=== PATIENT | male | born 1945 | race Caucasian/White ===

== ENCOUNTER 2016-05-25 21:02 | Emergency (ER) | payer OTHER, MEDICARE ==
--- NOTE | 2016-05-25 21:06 | PDOC ---
History of Present Illness - History of Present Illness Initial Comments: 05/25/16 21:56 The patient is a 70 year old male with a PMHx of esophageal cancer, HIV, diabetes who presents to the ED with generalized fatigue for 2 days and fever ( Tmax 102) today. He reports associated cough. He reports he recently completed another round of chemotherapy a week and a half ago. [facility] [place] be doing additional tests next week. He denes any sick contacts or recent travel. He denies chest pain, SOB.He denies abdominal pain, nausea, vomiting, diarrhea. PAST MEDICAL HISTORY: esophageal cancer, HIV, diabetes PAST SURGICAL HISTORY: no significant history FAMILY HISTORY: no pertinent history SOCIAL HISTORY: Pt lives with family and is employed. MEDICATIONS: reviewed ALLERGIES: As per nursing notes Review of Systems: General: (+) fever, weakness. No chills, no weight loss HEENT: No change in vision. No sore throat,. No ear pain CardioVascular: No chest pain or shortness of breath Respiratory: (+) cough, No wheezing. Gastrointestinal: no nausea, vomiting, diarrhea or constipation, No rectal bleeding Genitourinary: No dysuria, hematuria, or frequency Musculoskeletal: No joint or muscle pain or swelling Neurologic: No headache, vertigo, dizziness or loss of consciousness Psychiatric: No depression Skin: No rashes or easy bruising Endocrine: No increased thirst or abnormal weight change Allergic: No skin or latex allergy All other systems reviewed and normal Physical Exam: General:Ill-appearing, no acute distress HEENT: Throat: Normal, tonsils normal, no erythema or exudate. Dry mucous membranes. Neck: Supple, no meningeal signs, no lymphadenopathy Eyes: Pupils equal reactive and round, extraocular motion intact Chest: Nontender to palpation. Palpable port in the right upper chest with no erythema Cardiac: S1-S2 normal, regular rate and rhythm, no murmurs rubs or gallops Respiratory: Lungs clear to auscultation bilateral Abdomen: G-tube with no erythema or warmth. Soft, nondistended, normal bowel sounds, nontender to palpation diffusely Extremities: Warm, dry, no cyanosis, clubbing, or edema Skin: No rashes Neuro: Alert and oriented x3, nonfocal exam, grossly intact, normal gait Psych: Normal mood and affect <Alma Peacock - Last Filed: 05/25/16 21:56> - General History Source: Patient Exam Limitations: No Limitations - History of Present Illness Initial Comments: 05/25/16 23:15 A portion of this note was documented by scribe services under my direction. I have reviewed the details of the note, within reason, and agree with the documentation. The case summary and management plan written by me. Chest x-ray no acute pathology EKG normal sinus rhythm at a rate of 87, no acute ST-T wave changes normal EKG Assessment and plan: This is a 70-year-old male who comes in complaining of fever. Patient is on chemotherapy for esophageal cancer. Patient had a workup done and labs revealed a normal white count with no left shift, chemistry was unremarkable with the exception of a slightly decreased sodium of 127. Patient was given a liter and a half of fluids There was no focus for his fever identified. Patient was given acetaminophen IV for the fever with a repeat temperature of 99.0 orally. I called patient's oncologist done at [facility] and got the covering doctor a Dr. rey who recommends that we do not give patient any antibiotics at this time as we do not know what the source of his fever is and the that he can follow-up with his oncologist in the morning. <Sherin De Leon I - Last Filed: 05/25/16 23:18> - General Chief Complaint: Respiratory Stated Complaint: FEVER Time Seen by Provider: 05/25/16 21:06 Past History <Alma Peacock - Last Filed: 05/25/16 21:56> <Sherin De Leon I - Last Filed: 05/25/16 23:18> - Past Medical History Allergies/Adverse Reactions: Allergies Allergy/AdvReac Type Severity Reaction Status Date / Time No Known Allergies Allergy Unverified 05/25/16 21:09 Home Medications: Ambulatory Orders Abacavir Sulfate [Abacavir] 300 mg PO BID 05/25/16 Amlodipine Besylate 10 mg PO DAILY 05/25/16 Atorvastatin Ca [Lipitor] 80 mg PO HS 05/25/16 Bupropion HCl [Bupropion Xl] 300 mg PO DAILY 05/25/16 Clopidogrel Bisulfate [Plavix -] 75 mg PO DAILY 05/25/16 Efavirenz [Sustiva] 600 mg PO DAILY 05/25/16 Famciclovir 250 mg PO BID 05/25/16 Lisinopril 10 mg PO DAILY 05/25/16 Multivit-Minerals/Ferrous Fum [Multivitamin Liquid] 9 mg PO DAILY 05/25/16 [place]-3/Dha/Epa/Fish Oil [Fish Oil Conc 1,000 mg Softgel] 1,000 mg PO BID Omeprazole 20 mg PO BID 05/25/16 Pantoprazole Suspension [Protonix Packets For Oral Suspension -] 40 mg PO DAILY 05/25/16 Tenofovir Disoproxil Fumarate [Viread] 300 mg PO DAILY 05/25/16 *Physical Exam - Vital Signs Last Vital Signs Temp Pulse Resp BP Pulse Ox 100.6 F H 98 H 16 132/72 97 05/25/16 21:09 05/25/16 21:09 05/25/16 21:09 05/25/16 21:09 05/25/16 21:09 <Alma Peacock - Last Filed: 05/25/16 21:56> ED Treatment Course - LABORATORY CBC & Chemistry Diagram: 05/25/16 21:39 05/25/16 21:39 - ADDITIONAL ORDERS Additional order review: 05/25/16 21:39 RBC 3.36 L MCV 93.6 MCHC 34.6 RDW 16.3 H MPV 6.6 L Neutrophils % 41.2 L Lymphocytes % 43.5 H Monocytes % 12.2 H Eosinophils % 2.5 Basophils % 0.6 <Alma Peacock - Last Filed: 05/25/16 21:56> - LABORATORY CBC & Chemistry Diagram: 05/25/16 21:39 05/25/16 21:39 <Sherin De Leon I - Last Filed: 05/25/16 23:18> *DC/Admit/Observation/Transfer - Attestations Scribe Attestion: 05/25/16 21:56 Documentation prepared by Alma Peacock, acting as medical unit secretary for Sherin De Leon MD. <Alma Peacock - Last Filed: 05/25/16 21:56> - Discharge Dispostion Admit: No <Sherin De Leon I - Last Filed: 05/25/16 23:18> Diagnosis at time of Disposition: Fever of unknown origin - Discharge Dispostion Disposition: HOME Condition at time of disposition: Stable - Referrals Referrals: STAFF,NOT ON [Primary Care Provider] - - Patient Instructions Additional Instructions: You can alternate acetaminophen with ibuprofen every 3 hours as needed for fevers. Call your oncologist in the morning Return to the emergency department immediately with ANY new, persistent or worsening symptoms. Continue any medications as previously prescribed by your physician. You should follow up with your primary doctor as soon as possible regarding today's emergency department visit. . Please make sure your doctor reviews the results of your emergency evaluation. Thank you for coming to the Emergency Department today for your care. It was a pleasure to see you today. Please note that your evaluation is INCOMPLETE until you follow-up with your doctor.
[2016-05-25 21:30] VITALS: BP 132/72; PULSE 98; BMI 22.5
[2016-05-25 21:51] LABS: BASOPHIL 0.6 % (0-2.0); EOSINOPHIL 2.5 % (0-4.5); MCH 32.4 pg (25.7-33.7); MCHC 34.6 g/dl (32.0-35.9); MEAN CELL VOLUME 93.6 fl (80-96); MEAN PLT VOLUME 6.6 fl (7.5-11.1); NEUTROPHILS 41.2 % (42.8-82.8); PLATELET COUNT 169 K/MM3 (134-434); RDW 16.3 % (11.9-15.9); WHITE BLOOD COUNT 7.6 K/mm3 (4.0-10.8)
[2016-05-25] MEDS ORDERED: ACETAMINOPHEN 1000 MG/100 ML VIAL (NON FORMULARY) IVPB ONE (21:59)
[2016-05-25 22:02] LABS: CPK(DFH) 40 IU/L (38-174)
[2016-05-25 22:03] LABS: ALBUMIN 3.2 g/dl (3.5-5.0); ALK PHOS 118 U/L (32-92); ANION GAP 8 (8-16); BILIRUBIN,TOTAL 0.4 mg/dl (0.2-1.0); CALCIUM 8.8 mg/dl (8.4-10.2); CO2 23 mmol/L (22-28); CREATININE 0.7 mg/dl (0.6-1.3); GLUCOSE,RANDOM 169 mg/dl (74-106); SGOT/AST 25 U/L (10-42); SGPT/ALT 20 U/L (10-40); TOT PROT 6.6 g/dl (6.4-8.3)
[2016-05-25] MEDS ORDERED: ACETAMINOPHEN INJECTION 100 ML IVPB ONE (22:04)
[2016-05-25 22:14] LABS: TROPONIN I (DFP) < 0.03 ng/ml (0.03-0.50)
[2016-05-25] MEDS ORDERED: SODIUM CHLORIDE 1,000 ML IV ONE (22:15)
[2016-05-25 23:18] VITALS: TEMP 99
[2016-05-25 23:22] LABS: URINE APPEARANCE Clear; URINE BILIRUBIN Negative (NEGATIVE); URINE BLOOD Negative (NEGATIVE); URINE GLUCOSE (UA) Negative (NEGATIVE); URINE KETONE Negative (NEGATIVE); URINE LEUK ESTERASE Negative (NEGATIVE); URINE NITRITE Negative (NEGATIVE); URINE PROTEIN Trace (NEGATIVE); URINE UROBILINOGEN 0.2 E.U/dl (0.2-1.0)
[2016-05-25 23:23] LABS: URINE COLOR YELLOW
--- NOTE | 2016-05-26 18:48 | EKG ---
Test Reason : Blood Pressure : / mmHG Vent. Rate : 087 BPM Atrial Rate : 087 BPM P-R Int : 158 ms QRS Dur : 078 ms QT Int : 374 ms P-R-T Axes : 054 030 045 degrees QTc Int : 450 ms NORMAL SINUS RHYTHM NO PREVIOUS ECGS AVAILABLE Confirmed by MD STUART, COREY ([id number]) on 05/26/2016 6:48:00 PM Referred By: CARTER Confirmed By:COREY DAVIDSON MD
== END 2016-05-26 00:02 | disposition home or self-care (01) ==
LOC: FER 21:02
PROC: 3E0237Z Introduction of Electrolytic and Water Balance Substance into Muscle, Percutaneous Approach (ICD-10-PCS; principal; 2016-05-25)
PROC: 3E033NZ Introduction of Analgesics, Hypnotics, Sedatives into Peripheral Vein, Percutaneous Approach (ICD-10-PCS; 2016-05-25)
DX: R50.9 Fever, unspecified (principal); Z92.21 Personal history of antineoplastic chemotherapy; Z85.01 Personal history of malignant neoplasm of esophagus; E11.9 Type 2 diabetes mellitus without complications; Z21 Asymptomatic human immunodeficiency virus [HIV] infection status
CPT/HCPCS: 36415; 71010-TC; 80053; 81003; 82550; 83605; 84484; 85025; 87040; 87086; 87804; 93005; 99283-25

== ENCOUNTER 2016-06-03 21:19 | Emergency (ER) | payer OTHER, MEDICARE ==
--- NOTE | 2016-06-03 21:29 | PDOC ---
History of Present Illness - History of Present Illness Initial Comments: 06/03/16 21:46 Patient is a 70 year old male, significant medical hx of HIV, DM and esophageal CA, recently seen on 05/25/16 for complaint of fever and cough, who is returning to the ED for return of symptoms. The patient was tested positive for influenza type A and B during his last visit. Today he is here because his cough returned two days ago, which is nonproductive, and fever returned today. The patient also endorses diarrhea this morning and increased fatigue. The patient notes that he received a PET scan yesterday. Denies chest pain, shortness of breath, vomiting, or abdominal pain. PAST MEDICAL HISTORY: HIV, DM, esophageal CA PAST SURGICAL HISTORY: no significant history FAMILY HISTORY: no pertinent history SOCIAL HISTORY: Pt lives with family and is employed. MEDICATIONS: reviewed ALLERGIES: As per nursing notes General: Fever and fatigue. No or chills, no weight loss HEENT: No change in vision. No sore throat,. No ear pain CardioVascular: No chest pain or shortness of breath Respiratory: Cough. No wheezing. Gastrointestinal: Diarrhea. no nausea, vomiting, or constipation, No rectal bleeding Genitourinary: No dysuria, hematuria, or frequency Musculoskeletal: No joint or muscle pain or swelling Neurologic: No headache, vertigo, dizziness or loss of consciousness Psychiatric: nor depression Skin: No rashes or easy bruising Endocrine: no increased thirst or abnormal weight change Allergic: no skin or latex allergy All other systems reviewed and normal General: Chronically ill appearing, no acute distress HEENT: Throat: Normal, tonsils normal, no erythema or exudate. Mucous membranes are dry. Neck: Supple, no meningeal signs, no lymphadenopathy Eyes: Pupils equal reactive and round, extraocular motion intact Chest: Palpable portacath right chest no tenderness or erythema. Cardiac: Tachycardia. S1-S2 normal, no murmurs rubs or gallops Respiratory: Decreased breath sounds bilateral with a few rhonchi left base. No crackles. Abdomen: G-Tube in good position. Soft, nondistended, normal bowel sounds, nontender to palpation diffusely Extremities: Warm, dry, no cyanosis, clubbing, or edema Skin: No rashes Neuro: Alert and oriented x3, nonfocal exam, grossly intact, normal gait Psych: Normal mood and affect <Gricel Bowman - Last Filed: 06/03/16 21:45> - General History Source: Patient Exam Limitations: No Limitations - History of Present Illness Initial Comments: 06/03/16 23:28 A portion of this note was documented by scribe services under my direction. I have reviewed the details of the note, within reason, and agree with the documentation. The case summary and management plan written by me. Chest x-ray no acute infiltrate EKG normal sinus rhythm at a rate of 95, no acute ST-T wave changes, normal intervals Assessment and plan: This is a 70-year-old male with history significant for HIV , diabetes and esophageal cancer who is on chemotherapy. As a patient approximately 2 weeks ago and did a workup for fever. Patient's workup at that time was positive for influenza. Patient has been doing well until today when he developed some diarrhea and fever again. In addition to then significant illnesses he does have a cough that is new 2 days. On exam patient did have a few rhonchi at the base however his chest x-ray does not show a definite infiltrate. Patient has a normal white count and there is no left shift. Patient has 50% neutrophils with a white count of 4.4 so absolute neutrophil count is adequate. Patient is hyponatremic his sodium is 125, his sodium last time he was here was 127. Sodium is essentially unchanged. He does have a mildly elevated glucose however he is also diabetic. His lactic acid was normal and his venous blood gas showed no acidosis. On arrival he was dehydrated with slight tachycardia and mild hypotension however after a liter and half of fluid his blood pressure is normal as well as his heart rate. His oxygen saturation is normal 'I called patient's oncologist and discussed his workup with the covering oncologist a doctor Garcia. Patient was given ceftriaxone and azithromycin as it appears his source may be an early respiratory infection. C. difficile was also a consideration however patient has not had any recent antibiotics, he has had no diarrhea here in the emergency room and was unable to give us a stool sample. I think his diarrhea most likely is secondary to by mouth contrast that he received for a CAT scan the day before. Patient has an appointment with his oncologist for Sunday which she will keep. Patient discharged home with his significant other who is responsible and will make sure he follows up. 06/03/16 23:34 <Sherin De Leon I - Last Filed: 06/03/16 23:35> - General Chief Complaint: Cold Symptoms Stated Complaint: FEVER Time Seen by Provider: 06/03/16 21:28 Past History <Gricel Bowman - Last Filed: 06/03/16 21:45> - Past Medical History Cancer: Yes (ESOPHAGEAL) Diabetes: Yes HTN: Yes Hypercholesterolemia: Yes HIV: Yes - Surgical History Abdominal Surgery: Yes (COLON RESECTION, PEG PLACEMENT) - Psycho/Social/Smoking Cessation Hx Anxiety: No Suicidal Ideation: No Smoking History: Former smoker Have you smoked in the past 12 months: No Number of Cigarettes Smoked Daily: 20 If you are a former smoker, when did you quit?: 1997 <Sherin De Leon I - Last Filed: 06/03/16 23:35> - Past Medical History Allergies/Adverse Reactions: Allergies Allergy/AdvReac Type Severity Reaction Status Date / Time No Known Allergies Allergy Unverified 05/25/16 21:09 Home Medications: Ambulatory Orders Abacavir Sulfate [Abacavir] 300 mg PO BID 05/25/16 Amlodipine Besylate 10 mg PO DAILY 05/25/16 Atorvastatin Ca [Lipitor] 80 mg PO HS 05/25/16 Bupropion HCl [Bupropion Xl] 300 mg PO DAILY 05/25/16 Clopidogrel Bisulfate [Plavix -] 75 mg PO DAILY 05/25/16 Efavirenz [Sustiva] 600 mg PO DAILY 05/25/16 Famciclovir 250 mg PO BID 05/25/16 Lisinopril 10 mg PO DAILY 05/25/16 Multivit-Minerals/Ferrous Fum [Multivitamin Liquid] 9 mg PO DAILY 05/25/16 [place]-3/Dha/Epa/Fish Oil [Fish Oil Conc 1,000 mg Softgel] 1,000 mg PO BID Omeprazole 20 mg PO BID 05/25/16 Pantoprazole Suspension [Protonix Packets For Oral Suspension -] 40 mg PO DAILY 05/25/16 Tenofovir Disoproxil Fumarate [Viread] 300 mg PO DAILY 05/25/16 Azithromycin 250 mg PO ONCE #4 tablet 06/03/16 *Physical Exam - Vital Signs Last Vital Signs Temp Pulse Resp BP Pulse Ox 100.2 F H 105 H 24 97/54 98 06/03/16 21:30 06/03/16 21:30 06/03/16 21:30 06/03/16 21:30 06/03/16 21:30 <Gricel Bowman - Last Filed: 06/03/16 21:45> ED Treatment Course - LABORATORY CBC & Chemistry Diagram: 06/03/16 21:58 06/03/16 21:58 <Sherin De Leon I - Last Filed: 06/03/16 23:35> *DC/Admit/Observation/Transfer - Attestations Scribe Attestion: 06/03/16 21:51 Documentation prepared by Gricel Bowman, acting as medical videographer for Sherin De Leon MD. <Gricel Bowman - Last Filed: 06/03/16 21:45> <Sherin De Leon I - Last Filed: 06/03/16 23:35> Diagnosis at time of Disposition: Chronic hyponatremia Fever Qualifiers: Fever type: unspecified Qualified Code(s): R50.9 - Fever, unspecified - Discharge Dispostion Disposition: HOME Condition at time of disposition: Stable - Prescriptions Prescriptions: Azithromycin 250 mg PO ONCE #4 tablet - Referrals Referrals: STAFF,NOT ON [Primary Care Provider] - - Patient Instructions Additional Instructions: Take azithromycin 1 tablet a day for the next 4 days. Make sure you keep your appointment with your oncologist on Sunday. Try to stay well-hydrated, Return to the emergency department immediately with ANY new, persistent or worsening symptoms. Continue any medications as previously prescribed by your physician. You should follow up with your primary doctor as soon as possible regarding today's emergency department visit. . Please make sure your doctor reviews the results of your emergency evaluation. Thank you for coming to the Emergency Department today for your care. It was a pleasure to see you today. Please note that your evaluation is INCOMPLETE until you follow-up with your doctor.
[2016-06-03] MEDS ORDERED: SODIUM CHLORIDE 0.9% 1000 ML INFUS.BAG IV STA (21:33)
[2016-06-03 21:36] VITALS: BMI 22.3
[2016-06-03 22:17] LABS: BASOPHIL 0.9 % (0-2.0); EOSINOPHIL 7.8 % (0-4.5); MCH 31.8 pg (25.7-33.7); MCHC 33.9 g/dl (32.0-35.9); MEAN CELL VOLUME 93.7 fl (80-96); MEAN PLT VOLUME 7.3 fl (7.5-11.1); NEUTROPHILS 50.2 % (42.8-82.8); PLATELET COUNT 157 K/MM3 (134-434); RDW 15.6 % (11.9-15.9); WHITE BLOOD COUNT 4.4 K/mm3 (4.0-10.8)
[2016-06-03 22:20] LABS: CPK(DFH) 40 IU/L (38-174); INR 1.26 (0.82-1.09)
[2016-06-03 22:21] LABS: ALBUMIN 2.8 g/dl (3.5-5.0); ALK PHOS 109 U/L (32-92); ANION GAP 7 (8-16); CALCIUM 8.2 mg/dl (8.4-10.2); CO2 21 mmol/L (22-28); COCKROFT - GAULT 74.08; CREATININE 0.9 mg/dl (0.6-1.3); GLUCOSE,RANDOM 235 mg/dl (74-106); SGOT/AST 26 U/L (10-42); SGPT/ALT 20 U/L (10-40); TOT PROT 6.6 g/dl (6.4-8.3)
[2016-06-03 22:28] LABS: ACTIVATED PTT 39.2 SECONDS (24.0-38.9)
[2016-06-03 22:30] LABS: BILIRUBIN,TOTAL 0.4 mg/dl (0.2-1.0)
[2016-06-03 22:36] LABS: TROPONIN I (DFP) < 0.03 ng/ml (0.03-0.50)
[2016-06-03 22:54] VITALS: TEMP 99
[2016-06-03 22:54] LABS: VENOUS BLOOD GAS HCO3 20.9 meq/L (19-25); VENOUS PH 7.46 (7.32-7.42)
[2016-06-03 23:00] LABS: PH,URINE 5.5 (4.5-8); URINE APPEARANCE Clear; URINE BILIRUBIN Negative (NEGATIVE); URINE BLOOD Negative (NEGATIVE); URINE GLUCOSE (UA) Negative (NEGATIVE); URINE KETONE Negative (NEGATIVE); URINE LEUK ESTERASE Negative (NEGATIVE); URINE NITRITE Negative (NEGATIVE); URINE PROTEIN Trace (NEGATIVE); URINE UROBILINOGEN 0.2 E.U/dl (0.2-1.0)
[2016-06-03 23:01] LABS: URINE COLOR YELLOW
[2016-06-03] MEDS ORDERED: CEFTRIAXONE 1 GM in DEXTROSE 5%-WATER - 50 ML IVPB ONE (23:22)
[2016-06-03] MEDS ORDERED: AZITHROMYCIN IVPB 500 MG in DEXTROSE 5%-WATER - 250 ML IVPB ONE (23:26)
[2016-06-03] MEDS ORDERED: AZITHROMYCIN 500 MG VIAL IVPB ONE (23:26)
[2016-06-03] MEDS ORDERED: cefTRIAXone SODIUM 1 GM VIAL ONE (23:26)
[2016-06-03 23:55] VITALS: BP 131/65; PULSE 98
--- NOTE | 2016-06-05 12:21 | EKG ---
Test Reason : Blood Pressure : / mmHG Vent. Rate : 095 BPM Atrial Rate : 095 BPM P-R Int : 146 ms QRS Dur : 078 ms QT Int : 376 ms P-R-T Axes : 046 021 043 degrees QTc Int : 472 ms NORMAL SINUS RHYTHM WHEN COMPARED WITH ECG OF 25-MAY-2016 22:00, NO SIGNIFICANT CHANGE WAS FOUND Confirmed by MEERA CARBAJAL MD ([id number] on 06/05/2016 12:20:52 PM Referred By: SAMI CORBIN Confirmed By:MEERA CARBAJAL MD
== END 2016-06-04 01:04 | disposition home or self-care (01) ==
LOC: FER 21:19
PROC: 3E03329 Introduction of Other Anti-infective into Peripheral Vein, Percutaneous Approach (ICD-10-PCS; principal; 2016-06-03)
PROC: 3E0337Z Introduction of Electrolytic and Water Balance Substance into Peripheral Vein, Percutaneous Approach (ICD-10-PCS; 2016-06-03)
DX: R50.9 Fever, unspecified (principal); C15.9 Malignant neoplasm of esophagus, unspecified; E87.1 Hypo-osmolality and hyponatremia; Z87.891 Personal history of nicotine dependence; E11.9 Type 2 diabetes mellitus without complications; E78.00 Pure hypercholesterolemia, unspecified; I10 Essential (primary) hypertension; Z21 Asymptomatic human immunodeficiency virus [HIV] infection status
CPT/HCPCS: 36415; 71010-TC; 80053; 81003; 82550; 82803; 83605; 84484; 85025; 85610; 85730; 87040; 87086; 87324; 87449; 93005; 96361; 96365; 96368; 99283-25

== ENCOUNTER 2016-06-04 19:39 | Emergency (ER) | payer OTHER, MEDICARE ==
--- NOTE | 2016-06-04 20:01 | PDOC ---
[id number] No Limitations - History of Present Illness Initial Comments: 06/04/16 20:05 Patient is a 70 year old male, significant medical hx of HIV, DM and esophageal CA, recently seen on 06/03/16 and 05/25/16 for complaint of fever and cough, who is returning to the ED for return of symptoms. The patient was tested positive for influenza type A and B during his first visit on 05/25/16. Today he is here because his fever and cough returned. He states that his temp was 102.2 degrees two hours prior to arrival. The patient also endorses diarrhea 2x, and increased fatigue. The patient notes that he received a PET scan two days ago. After temp was detected this afternoon, he called oncologist on-call at [facility], and was told to either come into [facility] or go to local ER to determine if he had to be admitted. If he had to be admitted he would have to go to [facility]. Denies chest pain, shortness of breath, vomiting, or abdominal pain. Did not take his dose of azithromycin today. 06/04/16 20:35 <Kerwin Roach - Last Filed: 06/04/16 20:35> <Nohemi Garcia - Last Filed: 06/07/16 02:56> - General Stated Complaint: FEVER Time Seen by Provider: 06/04/16 19:48 Past History <Kerwin Roach - Last Filed: 06/04/16 20:35> - Past Medical History Cancer: Yes (ESOPHAGEAL) Diabetes: Yes HTN: Yes Hypercholesterolemia: Yes HIV: Yes - Surgical History Abdominal Surgery: Yes (COLON RESECTION, PEG PLACEMENT) - Psycho/Social/Smoking Cessation Hx Anxiety: No Suicidal Ideation: No Smoking History: Never smoked Have you smoked in the past 12 months: No Number of Cigarettes Smoked Daily: 20 If you are a former smoker, when did you quit?: 1997 Information on smoking cessation initiated: No Hx Alcohol Use: No Drug/Substance Use Hx: No Substance Use Type: None <Nohemi Garcia - Last Filed: 06/07/16 02:56> - Past Medical History Allergies/Adverse Reactions: Allergies Allergy/AdvReac Type Severity Reaction Status Date / Time No Known Allergies Allergy Verified 06/04/16 19:42 Home Medications: Ambulatory Orders Abacavir Sulfate [Abacavir] 300 mg PO BID 05/25/16 Amlodipine Besylate 10 mg PO DAILY 05/25/16 Atorvastatin Ca [Lipitor] 80 mg PO HS 05/25/16 Bupropion HCl [Bupropion Xl] 300 mg PO DAILY 05/25/16 Clopidogrel Bisulfate [Plavix -] 75 mg PO DAILY 05/25/16 Efavirenz [Sustiva] 600 mg PO DAILY 05/25/16 Famciclovir 250 mg PO BID 05/25/16 Lisinopril 10 mg PO DAILY 05/25/16 Multivit-Minerals/Ferrous Fum [Multivitamin Liquid] 9 mg PO DAILY 05/25/16 [place]-3/Dha/Epa/Fish Oil [Fish Oil Conc 1,000 mg Softgel] 1,000 mg PO BID Omeprazole 20 mg PO BID 05/25/16 Pantoprazole Suspension [Protonix Packets For Oral Suspension -] 40 mg PO DAILY 05/25/16 Tenofovir Disoproxil Fumarate [Viread] 300 mg PO DAILY 05/25/16 Azithromycin 250 mg PO ONCE #4 tablet 06/03/16 Review of Systems - Review of Systems Able to Perform ROS?: Yes Comments:: 06/04/16 20:07 CONSTITUTIONAL: Present: generalized weakness. fever. Absent: chills, diaphoresis, malaise, loss of appetite HEENT: Absent: rhinorrhea, nasal congestion, throat pain, throat swelling, difficulty swallowing, mouth swelling, ear pain, eye pain, visual Changes CARDIOVASCULAR: Absent: chest pain, syncope, palpitations, irregular heart rate, lightheadedness , peripheral edema RESPIRATORY: Present: cough Absent: shortness of breath, dyspnea with exertion, orthopnea, wheezing, stridor , hemoptysis GASTROINTESTINAL: Present: diarrhea Absent: abdominal pain, abdominal distension, nausea, vomiting, constipation, melena, hematochezia GENITOURINARY: Absent: dysuria, frequency, urgency, hesitancy, hematuria, flank pain, genital pain MUSCULOSKELETAL: Absent: myalgia, arthralgia, joint swelling SKIN: Absent: rash, itching, pallor HEMATOLOGIC/IMMUNOLOGIC: Absent: easy bleeding, easy bruising, lymphadenopathy, frequent infections ENDOCRINE: Absent: unexplained weight gain, unexplained weight loss, heat intolerance, cold intolerance NEUROLOGIC: Absent: headache, focal weakness or paresthesias, dizziness, unsteady gait, seizure, mental status changes, bladder or bowel incontinence PSYCHIATRIC: Absent: anxiety, depression, suicidal or homicidal ideation, hallucinations. <Kerwin Roach - Last Filed: 06/04/16 20:35> *Physical Exam - Vital Signs Last Vital Signs Temp Pulse Resp BP Pulse Ox 100.8 F H 94 H 18 153/76 98 06/04/16 19:46 06/04/16 19:46 06/04/16 19:46 06/04/16 19:46 06/04/16 19:46 - Physical Exam Comments: 06/04/16 20:09 GENERAL: The patient is awake, alert, and fully oriented, in no acute distress. HEAD: Normal with no signs of trauma. EYES: Pupils equal, round and reactive to light, extraocular movements intact, sclera anicteric, conjunctiva clear with no pallor. ENT: Ears normal, nares patent, oropharynx clear without exudates. Dry mucous membranes. NECK: Normal range of motion, supple without lymphadenopathy, JVD, or masses. LUNGS: Breath sounds equal, clear to auscultation bilaterally. No wheeze/ crackles. HEART: Regular rate and rhythm, normal S1 and S2 without murmur or rub. ABDOMEN: Soft/nontender/nondistended. BS wnl. No guarding or rebound. No palpable masses. No hepatosplenomegaly. G tube in place on abdomen with non infected site. EXTREMITIES: Normal range of motion, no edema. No clubbing or cyanosis. No cords , erythema, or tenderness. NEUROLOGICAL: Cranial nerves II through XII grossly intact. Normal speech, normal gait. PSYCH: Normal mood, normal affect. SKIN: Warm, Dry, normal turgor, no rashes or lesions noted. <Kerwin Roach - Last Filed: 06/04/16 20:35> - Vital Signs Last Vital Signs Temp Pulse Resp BP Pulse Ox 100.8 F H 94 H 18 153/76 98 06/04/16 19:46 06/04/16 19:46 06/04/16 19:46 06/04/16 19:46 06/04/16 19:46 <Nohemi Garcia - Last Filed: 06/07/16 02:56> ED Treatment Course - LABORATORY CBC & Chemistry Diagram: 06/04/16 20:25 06/04/16 20:25 <Kerwin Roach - Last Filed: 06/04/16 20:35> - LABORATORY CBC & Chemistry Diagram: 06/04/16 20:25 06/04/16 20:25 <Nohemi Garcia - Last Filed: 06/07/16 02:56> Medical Decision Making - Medical Decision Making Documentation has been prepared under my direction and personally reviewed by me in its entirety. I attest that this documented accurately reflects all work, treatment, procedures and medical decision making performed by me. patient feels markedly better after IV fluids and tylenol with resolution of weakness and malaise Case discussed with Dr Reina(covering for patient's oncologist Dr Valerio), with all lab values and chest x-ray results reviewed . She suggests that a respiratory viral panel be sent in case patient has viral infection(especially in light of history of low lymphocyte count). Otherwise, he should continue azithromycin and followup with his oncologist tomorrow at 9:30A as scheduled <Nohemi Garcia - Last Filed: 06/07/16 02:56> *DC/Admit/Observation/Transfer - Attestations Scribe Attestion: 06/04/16 20:10 Documentation prepared by Kerwin Roach, acting as medical field representative for Nohemi Garcia MD. <Kerwin Roach - Last Filed: 06/04/16 20:35> <Nohemi Garcia - Last Filed: 06/07/16 02:56> Diagnosis at time of Disposition: Fever Qualifiers: Fever type: unspecified Qualified Code(s): R50.9 - Fever, unspecified - Discharge Dispostion Disposition: HOME Condition at time of disposition: Stable - Patient Instructions Printed Discharge Instructions: DI for Fever (Symptom) -- Adult Additional Instructions: followup with Dr Valerio tomorrow as scheduled continue Azithromycin as prescribed drink plenty of water continue other medications as prescribed return to ER if you have shortness of breath/high fever/vomiting
[2016-06-04] MEDS ORDERED: SODIUM CHLORIDE 1,000 ML IV STA (20:12)
[2016-06-04 20:17] VITALS: BP 153/76; PULSE 94; TEMP 100.8; BMI 22.3
[2016-06-04 20:37] LABS: BASOPHIL 1.3 % (0-2.0); EOSINOPHIL 6.8 % (0-4.5); MCH 31.6 pg (25.7-33.7); MEAN CELL VOLUME 93.1 fl (80-96); MEAN PLT VOLUME 7.1 fl (7.5-11.1); NEUTROPHILS 41.1 % (42.8-82.8); PLATELET COUNT 181 K/MM3 (134-434); RDW 15.5 % (11.9-15.9); WHITE BLOOD COUNT 3.8 K/mm3 (4.0-10.8)
[2016-06-04 21:25] LABS: ALBUMIN 2.7 g/dl (3.5-5.0); ALK PHOS 98 U/L (32-92); ANION GAP 8 (8-16); CALCIUM 8.2 mg/dl (8.4-10.2); CO2 21 mmol/L (22-28); COCKROFT - GAULT 95.25; CREATININE 0.7 mg/dl (0.6-1.3); GLUCOSE,RANDOM 106 mg/dl (74-106); SGOT/AST 23 U/L (10-42); SGPT/ALT 17 U/L (10-40); TOT PROT 6.3 g/dl (6.4-8.3)
[2016-06-04 22:07] LABS: BILIRUBIN,TOTAL 0.2 mg/dl (0.2-1.0)
== END 2016-06-04 23:51 | disposition home or self-care (01) ==
LOC: FER 19:39
PROC: 3E0337Z Introduction of Electrolytic and Water Balance Substance into Peripheral Vein, Percutaneous Approach (ICD-10-PCS; principal; 2016-06-04)
DX: R50.9 Fever, unspecified (principal); Z85.01 Personal history of malignant neoplasm of esophagus; E11.9 Type 2 diabetes mellitus without complications; I10 Essential (primary) hypertension; E78.00 Pure hypercholesterolemia, unspecified; Z21 Asymptomatic human immunodeficiency virus [HIV] infection status
CPT/HCPCS: 36415; 71010-TC; 80053; 83605; 85025; 87633; 99281-25